=== PATIENT | female | born 1965 | race Caucasian/White ===

== ENCOUNTER 2019-09-09 07:53 | Outpatient (CLI) | payer OTHER, SELFPAY ==
--- NOTE | 2019-09-09 | MM_ITS ---
WS: [id number] BILATERAL DIGITAL SCREENING MAMMOGRAPHY WITH CAD CLINICAL INFORMATION: SCREENING HISTORY: Screening mammogram. No current complaints. COMPARISON: TECHNIQUE: Bilateral CC and MLO views. FINDINGS: The breasts are composed of heterogeneous fibroglandular density tissue, which can limit the detectio n of small underlying mass lesions. No suspicious mass, asymmetry, calcifications, or architectural d istortion. No evidence of malignancy. MM/[place] [id number] IMPRESSION: BI-RADS: 2-Benign FOLLOW UP: 1 Year Follow-up Recommend return to annual screening mammography.
== END 2019-09-09 07:54 | disposition home or self-care (01) ==
PROVIDERS: Family Provider Family Medicine; Visit Provider Obstetrics & Gynecology
DX: Z12.31 Encounter for screening mammogram for malignant neoplasm of breast (principal)
CPT/HCPCS: 77067

== ENCOUNTER 2019-09-16 07:58 | Day surgery (SDC) | payer OTHER, SELFPAY ==
[2019-09-15 08:12] VITALS: BMI 30.4
[2019-09-16 08:19] VITALS: BP 152/95; PULSE 64; RESP 18; TEMP 36.5; O2SAT 100
--- NOTE | 2019-09-16 08:28 | ANES.PREANES ---
Pre-Anesthetic Assessment Pre-Anesthetic Assessment: Height/Weight: Height 1.65 m Weight 83.007 kg Temp Pulse Resp BP Pulse Ox 97.7 F 64 18 152/95 100 09/16/19 08:19 09/16/19 08:19 09/16/19 08:19 09/16/19 08:19 09/16/19 08:19 Proposed Procedure: Operation Date: 09/16/19 09:00 Proposed Procedures p Colonoscopy(Not Applicable) - Bar Steinberg MD Was Beta Monica taken within 24 hours: N/A Social: Social History: Alcohol and No tobacco Exam: Pre-Anes Outpt Exam: alert, oriented x 3, clear to auscultation bilaterally and regular rate & rhythm Airway: Submandibular: WNL Cervical ROM: WNL MP: 1 Dentition: Partials History/ROS: No significant complaints Pulmonary: Pulmonary: None reported CV/HEM: CV/HEM: None reported : : None reported Hepatic: Hepatic: None reported GI: GI: GERD Comments: Occasional Metabolic: Metabolic: Thyroid (history of low levels but off meds now) Musc/skel: Musc/skel: None reported Neuropsych: Neuropsych: None reported Anesthetic Plan: ASA status: I Anesthesia: MAC Risk of > 500 ml blood loss (7ml/kg in children): No PFSH Anesthesia PFSH: Family History (Updated 09/05/19 @ 12:17 by Buffy Garcia LPN) Grandmother Cancer Other Diabetes Family history of thyroid problem Heart disease Hypertension Social History (Updated 09/05/19 @ 12:18 by Buffy Garcia LPN) Smoking and tobacco status: never smoked Alcohol intake: current Alcohol intake frequency: holidays/special occasions only Substance/Drug Use: never Lives independently: Yes Housing: House Current occupational status: employed Current occupational exposures/hazards: Yes Data Anesthesia Cardiac Studies: No Data to Display
[2019-09-16] MEDS: sodium chloride 0.9% 1,000 ML 30 ML (08:36)
--- NOTE | 2019-09-16 08:36 | PM.HPUD ---
H&P update H&P Update: DATE OF SURGERY/PROCEDURE: 09/16/19 DATE H&P PERFORMED: 08/10/19 PLANNED PROCEDURE: Operation Date: 09/16/19 09:00 Proposed Procedures p Colonoscopy(Not Applicable) - Bar Steinberg MD Full H&P HPI: PRIMARY INDICATION/DIAGNOSIS FOR SURGICAL PROCEDURE: Family history of colon cancer PLANNED PROCEDURE: Screening colonoscopy HPI: As above ROS: ROS: No hematochezia or change of habit. Perinent History: Family History: Family History (Updated 09/05/19 @ 12:17 by Buffy Garcia LPN) Grandmother Cancer Other Diabetes Family history of thyroid problem Heart disease Hypertension Social History: Social History Smoking and tobacco status: never smoked Alcohol intake: current Alcohol intake frequency: holidays/special occasions only Substance/Drug Use: never Lives independently: Yes Housing: House Current occupational status: employed Current occupational exposures/hazards: Yes Pertinent Exam Findings: PHYSICAL EXAM: alert, oriented x 3, clear to auscultation bilaterally and regular rate & rhythm
[2019-09-16 09:31] VITALS: BP 124/87; PULSE 67; RESP 16; TEMP 36.1; O2SAT 100
--- NOTE | 2019-09-16 09:39 | ANE.PACU ---
 Inpatient post-anesthesia follow up: Airway intact: Yes Vital signs: Temperature 97.7 F Pulse Rate [Bilate ral Radial] 64 Respiratory Rate 18 Blood Pressure [Le ft Arm] 152/95 Pulse Oximetry 100 Oxygen Delivery Me thod Room Air Oxygen Flow Rate Fraction of Inspir ed Oxygen Hydration adequate: Yes Nausea and vomiting: No Pain level: 1 Mental status: Baseline
[2019-09-16 09:44] VITALS: BP 124/87; PULSE 64; RESP 18; O2SAT 100
== END 2019-09-16 10:13 | disposition home or self-care (01) ==
PROVIDERS: Family Provider Family Medicine; Visit Provider Internal Medicine
PROC: 0DJD8ZZ Inspection of Lower Intestinal Tract, Via Natural or Artificial Opening Endoscopic (ICD-10-PCS; CPT 45378; principal; 2019-09-16 09:00)
DX: Z12.11 Encounter for screening for malignant neoplasm of colon (principal); Z80.0 Family history of malignant neoplasm of digestive organs; D12.3 Benign neoplasm of transverse colon; Z82.49 Family history of ischemic heart disease and other diseases of the circulatory system; Z83.3 Family history of diabetes mellitus; F17.210 Nicotine dependence, cigarettes, uncomplicated
CPT/HCPCS: 45385; 88305; J2001; J2704; J7030